=== PATIENT | female | born 1965 | race Caucasian/White ===

== ENCOUNTER 2019-03-20 08:46 | Day surgery (SDC) | payer OTHER ==
[2019-03-20] MEDS ORDERED: NS 0.9% 1000 ML** 1,000 ML IV ONE (09:10)
[2019-03-20] MEDS ORDERED: Ketorolac INJ* 30 MG/ML 1 ML VIAL IV PUSH ONE (09:10)
[2019-03-20] MEDS ORDERED: Ondansetron INJ* 2 MG/ML VIAL IV ONE (09:10)
[2019-03-20] MEDS ORDERED: HYDROmorphone INJ1* 1 MG/ML SYRINGE IV SLOW PU ONE (09:11)
[2019-03-20 09:38] LABS: ABS Basophils 0.1 10^3/ul (0-0.2); ABS Eosinophils 0.4 10^3/ul (0-0.6); ABS Lymphocytes 1.7 10^3/ul (1.0-4.8); ABS Monocytes 0.5 10^3/ul (0-0.8); ABS Neutrophils 5.5 10^3/ul (1.5-7.7); Eosinophil % 4.9 %; Hematocrit 38 % (35-47); Lymphocyte % 20.7 %; Mean Corpuscular HGB Conc 34 g/dL (31-36); Mean Corpuscular Hemoglobin 32 pg (27-31); Mean Corpuscular Volume 93 fL (80-97); Mean Platelet Volume 7.9 fL (7.4-10.4); Platelet Count 281 10^3/uL (150-450); Red Blood Count 4.07 10^6 /uL (3.70-4.87); Red Cell Distribution Width 14 % (10-15); White Blood Count 8.2 10^3/uL (3.5-10.8)
[2019-03-20 09:52] LABS: Albumin 3.9 g/dL (3.2-5.2); Albumin/Globulin Ratio 1.4 (1-3); BUN/Creatinine Ratio 13.1 (8-20); C Reactive Protein 12.65 mg/L (<8.01); EGFR African American 85.5 (>60); EGFR Non-African American 70.7 (>60); Globulin 2.8 g/dL (2-4); Total Bilirubin 0.4 mg/dL (0.2-1.0); Total Protein 6.7 g/dL (6.4-8.9)
[2019-03-20 10:11] LABS: Magnesium 1.9 mg/dL (1.9-2.7); Potassium 3.8 mmol/L (3.5-5.0)
--- NOTE | 2019-03-20 10:22 | ED ---
Abdominal Pain/Female - HPI Summary HPI Summary: Pt. is a 53 y.o female who presents to the ER for severe, acute RUQ pain that started in this am. Pt. notes a remote hx of gallbladder issues. Pt. denies cp, sob, fever, vomiting, urinary sxs. No significant past medical hx. Sxs are moderate in severity. No current modifying factors. - History of Current Complaint Chief Complaint: EDAbdPain Stated Complaint: SEVERE UPPER ABDOMINAL PAIN PER PT Time Seen by Provider: 03/20/19 08:56 Hx Obtained From: Patient Pain Intensity: 10 Allergies/Adverse Reactions: Allergies Allergy/AdvReac Type Severity Reaction Status Date / Time bee venom protein (honey bee) Allergy Difficulty Verified 03/20/19 13:10 Swallowing morphine Allergy Vomiting Verified 03/20/19 13:10 PMH/Surg Hx/FS Hx/Imm Hx Previously Healthy: Yes Endocrine/Hematology History: Denies: Hx Diabetes Cardiovascular History: Denies: Hx Angina, Hx Congestive Heart Failure, Hx Hypertension, Hx Pacemaker /ICD Respiratory History: Denies: Hx Asthma History: Denies: Hx Renal Disease Sensory History: Denies: Hx Contacts or Glasses, Hx Hearing Aid Opthamlomology History: Denies: Hx Contacts or Glasses Neurological History: Reports: Hx Seizures - SIMPLE AUORA- LAST SUMMER 2011 Psychiatric History: Reports: Hx Anxiety - XANAX PRN Denies: Hx Panic Disorder - Cancer History Hx Chemotherapy: No Hx Radiation Therapy: No - Surgical History Surgery Procedure, Year, and Place: . SINUS SURGERY OUTPATIENT Hx Anesthesia Reactions: Yes - MORPHINE Infectious Disease History: No Infectious Disease History: Denies: Traveled Outside the [place] in Last 30 Days - Family History Known Family History: Positive: Non-Contributory - Social History Occupation: Employed Full-time Lives: With Family Alcohol Use: Occasionally Substance Use Type: Reports: None Smoking Status (MU): Never Smoked Tobacco Review of Systems Constitutional: Negative Negative: Fever, Chills Cardiovascular: Negative Negative: Palpitations, Chest Pain Respiratory: Negative Negative: Shortness Of Breath, Cough Positive: Abdominal Pain, Nausea. Negative: Vomiting, Diarrhea Genitourinary: Negative Negative: dysuria Neurological: Negative All Other Systems Reviewed And Are Negative: Yes Physical Exam Triage Information Reviewed: Yes Vital Signs On Initial Exam: Initial Vitals Temp Pulse Resp BP Pulse Ox 97.3 F 71 18 149/95 98 03/20/19 08:50 03/20/19 08:50 03/20/19 08:50 03/20/19 08:50 03/20/19 08:50 Vital Signs Reviewed: Yes Appearance: Positive: Pain Distress - Pt. leaning over bed, appears in pain but nontoxic. present. Skin: Positive: Warm, Dry Head/Face: Positive: Normal Head/Face Inspection Eyes: Positive: Normal, EOMI, RANDELL Neck: Positive: Supple Respiratory/Lung Sounds: Positive: Clear to Auscultation, Breath Sounds Present Cardiovascular: Positive: Normal, RRR Abdomen Description: Positive: Other: - Abd. is soft with marked tenderness to the RLQ and RUQ with guarding. Positive Riggs sign. Musculoskeletal: Positive: Normal, Strength/ROM Intact Neurological: Positive: Normal, CN Intact II-III Psychiatric: Positive: Affect/Mood Appropriate Diagnostics - Vital Signs Vital Signs Temp Pulse Resp BP Pulse Ox 03/20/19 09:28 16 03/20/19 09:08 69 167/105 100 03/20/19 08:50 97.3 F 71 18 149/95 98 - Laboratory Lab Results: Lab Results 03/20/19 03/20/19 03/20/19 Range/Units 09:21 09:21 09:21 WBC 8.2 (3.5-10.8) 10^3/uL RBC 4.07 (3.70-4.87) 10^6 /uL Hgb 13.0 (12.0-16.0) g/dL Hct 38 (35-47) % MCV 93 (80-97) fL MCH 32 H (27-31) pg MCHC 34 (31-36) g/dL RDW 14 (10-15) % Plt Count 281 (150-450) 10^3/uL MPV 7.9 (7.4-10.4) fL Neut % (Auto) 67.3 % Lymph % (Auto) 20.7 % [place] % (Auto) 6.3 % Eos % (Auto) 4.9 % Baso % (Auto) 0.8 % Absolute Neuts (auto) 5.5 (1.5-7.7) 10^3/ul Absolute Lymphs (auto) 1.7 (1.0-4.8) 10^3/ul Absolute Monos (auto) 0.5 (0-0.8) 10^3/ul Absolute Eos (auto) 0.4 (0-0.6) 10^3/ul Absolute Basos (auto) 0.1 (0-0.2) 10^3/ul Absolute Nucleated RBC 0.0 10^3/ul Nucleated RBC % 0.0 Sodium 138 (135-145) mmol/L Potassium 3.8 (3.5-5.0) mmol/L Chloride 108 (101-111) mmol/L Carbon Dioxide 23 (22-32) mmol/L Anion Gap 7 (2-11) mmol/L BUN 11 (6-24) mg/dL Creatinine 0.84 (0.51-0.95) mg/dL Est GFR ( Amer) 85.5 (>60) Est GFR (Non-Af Amer) 70.7 (>60) BUN/Creatinine Ratio 13.1 (8-20) Glucose 120 H (70-100) mg/dL Lactic Acid 1.1 (0.5-2.0) mmol/L Calcium 9.0 (8.6-10.3) mg/dL Magnesium 1.9 (1.9-2.7) mg/dL Total Bilirubin 0.40 (0.2-1.0) mg/dL AST 15 (13-39) U/L ALT 18 (7-52) U/L Alkaline Phosphatase 60 (34-104) U/L Troponin I 0.00 (<0.04) ng/mL C-Reactive Protein 12.65 H (<8.01) mg/L Total Protein 6.7 (6.4-8.9) g/dL Albumin 3.9 (3.2-5.2) g/dL Globulin 2.8 (2-4) g/dL Albumin/Globulin Ratio 1.4 (1-3) Lipase 18 (11.0-82.0) U/L Result Diagrams: 03/20/19 09:21 03/20/19 09:21 Lab Statement: Any lab studies that have been ordered have been reviewed, and results considered in the medical decision making process. Abdominal Pain Fem Course/Dx - Course Course Of Treatment: Pt. presenting with RUQ and RLQ pain. Suscept cholecystitis vs, urolithiasis, vs appendicitis. CT abd/pelvis and GB us ordered. Pt. started on iv fluids and pain medication. Labs unremarkable other than minimally elevated crp. IMPRESSION: 1. CHOLELITHIASIS IN ADDITION FINDINGS SUGGESTING THE POSSIBILITY OF ACUTE CHOLECYSTITIS. 2. SMALL HYPERECHOIC SOLID HEPATIC NODULE, RECOMMEND A FOLLOW-UP RIGHT UPPER QUADRANT. ULTRASOUND IN 6 MONTHS TIME. IMPRESSION: 1. Cholelithiasis without CT apparent acute inflammatory change characteristic of acute. cholecystitis. If there is high clinical suspicion for acute cholecystitis, superior. characterization can be made with ultrasound. 2. No renal calculi or signs of urinary obstruction. 3. Normal appendix. 4. At the left adnexa there is a 3.4 cm fluid attenuation structure consistent with a. dominant follicle. Please correlate to the patient's menstrual status. Superior. characterization can be made with pelvic ultrasound. Readings per radiology. On re-exam pt. is resting more comfortably and pain has improved but is still there. Results and incidental findings discussed with pt. Abd was reexamined and pt. still having significant RUQ pain with positive riggs sign. Surgery consulted. Dr. Shell evaluated pt. in ED and will take her to the OR for cholecystectomy. - Diagnoses Differential Diagnosis: Positive: Appendicitis, Diverticulitis, Gall Bladder Disease, Hepatitis, Peptic Ulcer Disease, Renal Colic Provider Diagnoses: Cholecystitis Discharge - Sign-Out/Discharge Documenting (check all that apply): Patient Departure Patient Received Moderate/Deep Sedation with Procedure: No - Discharge Plan Condition: Good Disposition: ADMITTED TO [facility] - Billing Disposition and Condition Condition: GOOD Disposition: Admitted to [facility]
[2019-03-20 11:48] LABS: Urine Appearance Cloudy; Urine Bilirubin Negative (Negative); Urine Blood Negative (Negative); Urine Color Straw; Urine Glucose Negative (Negative); Urine Ketones Negative (Negative); Urine Nitrite Negative (Negative); Urine Protein Negative (Negative); Urine Specific Gravity 1.006 (1.010-1.030); Urine Urobilinogen Negative (Negative)
[2019-03-20] MEDS ORDERED: Piperacillin/Tazobac ADVAN(*) 3.375 GM in NS 0.9% 100 ML* 100 ML IVPB ONE (12:16)
[2019-03-20] MEDS ORDERED: Bupivacaine 0.25% EPI 200,000* 30 ML SDV ONE (12:30)
[2019-03-20] MEDS ORDERED: Ondansetron INJ* 2 MG/ML VIAL ONE ×2 (12:36→15:50)
[2019-03-20] MEDS ORDERED: Lidocaine 2% PF * 5 ML VIAL ONE (12:36)
[2019-03-20] MEDS ORDERED: Dexamethasone IV* 4 MG/ML 1 ML (4 MG) ONE (12:36)
[2019-03-20] MEDS ORDERED: fentaNYL* 50 MCG/ML 2 ML VIAL (100 MCG VIAL) ONE ×3 (12:36→14:47)
[2019-03-20] MEDS ORDERED: Midazolam* 1 MG/ML 5 ML VIAL (5 MG) ONE (12:36)
[2019-03-20] MEDS ORDERED: Propofol* 10 MG/ML 20 ML BTL ONE (12:36)
[2019-03-20] MEDS ORDERED: Cisatracurium* 2 MG/ML MDV 5 ML ONE (12:36)
[2019-03-20] MEDS ORDERED: Famotidine IV* 10 MG/ML 2 ML (20 mg) IV ONE (12:53)
[2019-03-20] MEDS ORDERED: Buffered Lidocaine 1% SYRIN* 1 ML/SYRINGE INTRADERM ONE (12:53)
[2019-03-20] MEDS ORDERED: Famotidine IV* 10 MG/ML 2 ML (20 mg) ONE (12:54)
[2019-03-20] MEDS ORDERED: Lactated Ringers 1000 ML Bag* 1,000 ML IV SCH (13:00)
--- NOTE | 2019-03-20 13:09 | HP ---
CC: [facility]; Dr. Harris; Dr. Oneida Dougherty, Neurology. HISTORY AND PHYSICAL: DATE OF ADMISSION: 03/20/19 REFERRING PHYSICIAN: ERNESTO Mac, from ER. REASON FOR CONSULTATION: Epigastric and right upper quadrant abdominal pain with gallstones. HISTORY OF PRESENT ILLNESS: Ms. Ivania Pan is a 53-year-old woman who has a seizure disorder which causes this periodic aura and visual disturbances who was awoken about 4 o'clock this morning from sleep with severe epigastric discomfort. This radiated somewhat to the right, but not into her back. It was associated with some nausea without vomiting. She had lower abdominal pain, fevers, or diarrhea. The pain became unbearable and found it was more pleasant to be lying on her stomach or standing on all fours. She presented to the emergency room, was noted to be afebrile with a heart rate in the 70s with normal vital signs. She was noted to have epigastric tenderness. Her white blood cell count was normal. She had a mild elevation of her C-reactive protein, but normal liver transaminases and total bilirubin. Lactic acid was 1.1. Lipase was 18. Urinalysis was unremarkable. She initially underwent a CT scan of the abdomen and pelvis without oral or IV contrast, this was unremarkable. The gallbladder appeared to be normal. There was no evidence of appendicitis or renal problems. With her persistent epigastric pain she underwent an ultrasound of her gallbladder. I did review the study. This showed some mild thickening of the gallbladder wall with a positive Riggs's sign. Cholelithiasis was noted with a rather large gallstone towards the neck of the gallbladder. There was no pericholecystic fluid. Findings were possibly consistent with acute cholecystitis. She has had narcotic analgesia and her pain has persisted. A surgical consultation has been obtained. PAST MEDICAL HISTORY: Seizure disorder, which she describes as auras and visual disturbances. She has not had an episode in the last 3 or 4 years. PAST SURGICAL HISTORY: section. MEDICATIONS: Include: Lamictal 200 mg in the morning and 300 mg at night. ALLERGIES: MORPHINE and BEE STINGS. SOCIAL HISTORY: She is , she has 2 grown children. 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 She does not smoke, drinks small amount of alcohol on a social basis. She is , lives with her . REVIEW OF SYSTEMS: Cerebrovascular: As per above. Pulmonary: No wheezing or hemoptysis. Cardiac: No chest pain or shortness of breath. GI: As per above. She has never had discomfort as she describes above. She has never been told that she has had gallstones, has had no workup. : No urgency or hematuria, although she was incontinent slightly here this morning in the emergency room. PHYSICAL EXAMINATION GENERAL: She is a well-developed, well-nourished female, quite pleasant, appears to be in no acute distress. VITAL SIGNS: Temperature 97.3, pulse 69, blood pressure 167/105. HEENT: Sclerae is anicteric. LUNGS: Her lungs were clear to auscultation with normal respiratory effort. HEART: Regular rate and rhythm without murmurs, rubs, or gallops. ABDOMEN: Soft and nondistended. She had normoactive bowel sounds throughout. She has a well-healed low-transverse incision without hernia. There is no umbilical hernia. She has tenderness in the epigastric and right upper quadrant on deeper palpation without rigidity. There is no peritoneal irritation. PSYCHIATRIC: She is awake, alert, and oriented x3. She has a normal judgement and insight. IMPRESSION: Acute calculus cholecystitis. She has persistent pain with a large gallstone in the near neck of the gallbladder with some thickening of the gallbladder noted on ultrasound. She has a mildly elevated C-reactive protein and persistent pain despite narcotic analgesia. I discussed these findings with her here in the emergency room. I suspect with this large stone that her pain is going to persist and that she will not be able to be discharged home with an adequate amount of analgesia. Also concerned that this is early acute calculus cholecystitis and will progress, and if we attempt to treat this with oral antibiotics as an outpatient that she will have difficulty over the next 24 to 48 hours, and would most likely return to the emergency room. After our discussion I do recommend that she undergo a laparoscopic cholecystectomy. She would like to proceed. She has been n.p.o. here in the emergency room. PLAN: Laparoscopic cholecystectomy today. The procedure was discussed with her and the risks of; but not limited to; bleeding, infection, intraabdominal abscess formation, injury to peritoneal and retroperitoneal structures, common bile duct injury, bile leak, abscess formation, possibility of an open procedure , and the risks of anesthesia. Postoperative recovery times and hospital stays were also discussed. We will proceed today. [id number]/CPS #: [id number] MARIAN
[2019-03-20] MEDS ORDERED: Ketorolac INJ* 30 MG/ML 1 ML VIAL ONE (14:24)
[2019-03-20] MEDS ORDERED: Glycopyrrolate IV* 0.2 MG/ML 1 ML VIAL ONE (14:53)
[2019-03-20] MEDS ORDERED: Neostigmine Methylsulfate* 1 MG/ML 10 ML VIAL (1 mg/ml) ONE (14:53)
--- NOTE | 2019-03-20 15:01 | BRIEFOPN ---
Brief Operative Note - Surgery Procedures: Procedures OPERATIVE REPORT Pre-op: Acute calculous cholecystitis Post-Op: Same Procedure:Laparoscopic cholecystectomy Surgeon: MD Suleman Asst: ERNESTO Venegas Anes: general with local , Dr. Ortiz IVF:1 4 Liter of crystalloid EBL:min Specimen: gallbladder Drain: none Wound: 3 To PACU
--- NOTE | 2019-03-20 15:16 | OP ---
Operative Report - Blank - Operative Report Date of Operation: 03/20/19 Note: Brief Operative Note Preop Dx: acute calculous cholecystitis Postop Dx: same Procedure: laparoscopic cholecystectomy Anesthesia: BARBARA Surgeon: Suleman Employee Relations Manager: Danny Batista Fluids: 1400 NS EBL: less than 50mL Specimen: gallbladder Drains: none Findings: dictated
[2019-03-20] MEDS ORDERED: fentaNYL* 50 MCG/ML 2 ML VIAL (100 MCG VIAL) IV PRN (15:40)
[2019-03-20] MEDS ORDERED: Naloxone* 0.4 MG/ML 1 ML VIAL IV PRN (15:40)
[2019-03-20] MEDS ORDERED: Ondansetron INJ* 2 MG/ML VIAL IV PRN (15:40)
[2019-03-20 17:39] VITALS: BP 147/90
--- NOTE | 2019-03-20 23:54 | OP ---
CC: Oneida Dougherty MD; Katie Harris MD * DATE OF OPERATION: 03/20/19 - [facility] DATE OF : 63 SURGEON: Renan Shell MD PUBLICATION EDITOR: ERNESTO Sampson ANESTHESIOLOGIST: Dr. Ortiz. ANESTHESIA: General with local. PRE-OP DIAGNOSIS: Acute calculous cholecystitis POST-OP DIAGNOSIS: Acute calculous cholecystitis OPERATIVE PROCEDURE: Laparoscopic cholecystectomy. ESTIMATED BLOOD LOSS: Minimal. WOUND CLASSIFICATION: III. COMPLICATIONS: None. DRAINS: None. SPECIMENS: Gallbladder. FINDINGS: Early acute calculous cholecystitis with a rather large gallstone in the neck of the gallbladder. DESCRIPTION OF PROCEDURE: Written informed consent was obtained. The abdomen was marked with indelible ink, and preoperative antibiotics were administered. The patient was taken to the operating room and placed in a supine position. Sequential compression devices and warming blanket were applied. General anesthesia was administered. The abdomen was prepped and draped in usual sterile fashion. Time-out verification was completed. Initially, a small amount of 1% lidocaine was infiltrated in the left upper quadrant of the abdomen just below the costal margin and a transverse incision was made. Using the 5-mm Optiview port under visualization with the 5-mm 0-degree camera, the peritoneal cavity was entered under direct vision and the abdomen was insufflated to 15 mmHg. I carefully evaluated the viscera and omentum in the left upper quadrant and there was no evidence of obvious injury from the port entry. Under direct vision, a 5-mm supraumbilical port was placed, a second 11-mm epigastric port was placed and two 5-mm ports were placed in the right side of the upper abdominal wall in the usual locations. The liver appeared to be unremarkable. The omentum was swept downwards. The gallbladder was edematous and whitish in color and mildly thick walled, but it was not particularly distended. We were able to grasp this and elevate it up over the liver bed. The infundibulum was identified and the peritoneum along the medial and lateral aspects of the gallbladder in this area was divided with cautery and swept down. This was quite edematous and all consistent with acute calculous cholecystitis. The cystic duct and artery were identified and dissected carefully free. I took a considerable portion of the inferior part of the gallbladder off the liver bed using the critical view technique to assure myself of these two structures. The cystic duct was then triply clipped and divided. The cystic artery was doubly clipped and divided. The gallbladder was then removed from the liver bed using cautery and placed in an EndoCatch bag. The liver bed was then irrigated. Hemostasis was assured. The gallbladder was removed from the epigastric port. I did make the skin incision slightly larger and we stretched the musculature somewhat with a Destiny clamp to pull the large stone within the bag through the abdominal wall without considerable difficulty, however. Once again, all ports removed under direct vision of the camera. There was no abdominal wall bleeding. The epigastric fascia was then closed with 2 separate 0 Vicryl suture. The skin at all 5 incisions was approximated with subcuticular 4-0 Vicryl suture. Steri-Strips were applied. The patient tolerated the procedure well and was taken to the recovery room in stable condition. [id number]/CPS #: [id number]
== END 2019-03-20 12:05 | disposition home or self-care (01) ==
LOC: ED 08:46 → OR 12:05
PROVIDERS: ATTEND Surgery
DX: K80.00 Calculus of gallbladder with acute cholecystitis without obstruction (principal); R10.11 Right upper quadrant pain; R10.31 Right lower quadrant pain; G40.89 Other seizures
CPT/HCPCS: 36415; 74176; 76705; 80053; 81003; 81025; 83605; 83690; 83735; 84484; 85025; 86140; 88304; 93005; 99285; J1100; J1170; J1885; J2250; J2405; J2543; J2704; J2710; J3010